=== PATIENT | female | born 1940 | race Caucasian/White ===

== ENCOUNTER 2017-10-22 14:19 | Outpatient (CLI) | payer OTHER ==
[~2017-10-22 14:19] MED LIST: ONDA4TAB9 PO; OXYC-150 PO
[2017-10-22 14:20] VITALS: BP 133/61
== END 2017-10-22 15:46 | disposition home or self-care (01) ==
LOC: ORTHO 14:19
PROVIDERS: ATTEND Nurse Practitioner Family
DX: S52.501A Unspecified fracture of the lower end of right radius, initial encounter for closed fracture (principal); S00.03XA Contusion of scalp, initial encounter; E03.9 Hypothyroidism, unspecified; K85.90 Acute pancreatitis without necrosis or infection, unspecified; M85.80 Other specified disorders of bone density and structure, unspecified site; Z88.5 Allergy status to narcotic agent; Z90.710 Acquired absence of both cervix and uterus; X58.XXXA Exposure to other specified factors, initial encounter; Y93.89 Activity, other specified; Y92.89 Other specified places as the place of occurrence of the external cause; Y99.8 Other external cause status
CPT/HCPCS: 73100; A6449

== ENCOUNTER 2017-10-30 12:32 | Observation (INO) | payer OTHER ==
[2017-10-29 16:53] LABS: BASOPHILS % (AUTO) 0.5 % (0-1); EOSINOPHILS # (AUTO) 0.2 X10'3 (0-0.9); EOSINOPHILS % (AUTO) 2.9 % (0-6); LYMPHOCYTES # (AUTO) 3.5 X10'3 (1.1-4.8); LYMPHOCYTES % (AUTO) 43.9 % (21-51); MEAN CORPUSCULAR HEMOGLOBIN 29.1 PG (27.0-31.0); MEAN CORPUSCULAR HGB CONC 33.2 % (33.0-36.5); MEAN CORPUSCULAR VOLUME 87.7 FL (78-98); MEAN PLATELET VOLUME 6.7 FL (7.4-10.4); MONOCYTES # (AUTO) 0.5 X10'3 (0-0.9); MONOCYTES % (AUTO) 5.9 % (2-12); NEUTROPHILS # (AUTO) 3.8 X10'3 (1.8-7.7); NEUTROPHILS % (AUTO) 46.8 % (42-75); PRE OP HEMATOCRIT 39.5 % (35.0-45.0); PRE OP HEMOGLOBIN 13.1 g/dL (12.0-16.0); PRE OP PLATELET COUNT 399 X10'3 (140-440); RED CELL DISTRIBUTION WIDTH 14.9 % (11.5-14.5)
[2017-10-29 17:08] LABS: ALBUMIN 3.7 G/DL (3.4-5.0); ALBUMIN/GLOBULIN RATIO 1.1 (1.1-1.5); ALKALINE PHOSPHATASE 115 IU/L (46-116); BLOOD UREA NITROGEN 18 MG/DL (7-18); BUN/CREATININE RATIO 22.5 (6.6-38.0); CALCIUM 8.8 MG/DL (8.5-10.1); CHLORIDE 104 MMOL/L (99-107); PRE OP ALT 20 U/L (30-65); PRE OP ANION GAP 7 (8-16); PRE OP AST 14 U/L (10-37); PRE OP BILIRUB, TOTAL 0.3 MG/DL (0.0-1.0); PRE OP GLUCOSE 91 MG/DL (70-104); PRE OP POTASSIUM 3.7 MMOL/L (3.4-5.1); PRE OP SODIUM 141 MMOL/L (135-145); TOTAL CARBON DIOXIDE 29.9 MMOL/L (24-32); TOTAL PROTEIN 7.2 G/DL (6.4-8.2); eGFR 69 ML/MIN
[2017-10-30] VITALS (27 sets, daily range): BP systolic 112–171; BP diastolic 45–89
[~2017-10-30] VITALS: Ht 170.2 cm; Wt 80.7 kg
[~2017-10-30 12:32] MED LIST changes: +ASPI-611 PO; +BIOT5000 PO; +CALC600T12 PO; +CHOL10002 PO; +CYAN-19 PO; +Cefazolin 2GM/100ML NS IVPB IV ONE; +DIGE1TAB PO; +DOCU250C4 PO; +FISH1CAP15 PO; +MAGN125C PO; -ONDA4TAB9 PO; -OXYC-150 PO; +POTA99TA21 PO; +THYR30TA2 PO; +VITE1000C PO; +famotidine 20mg tablet PO ONE; +vancomycin inj 1,500 MG in normal saline 300ml IV soln IV ONE
[2017-10-30] MEDS ORDERED: LIDOcaine 1% (10mg/ml) 2ml vial ONE (12:42)
[2017-10-30] MEDS: ringers solution, lacted 1,000 ML IV SCH (13:40)
[2017-10-30] MEDS ORDERED: ceFAZolin 1000mg inj ONE (14:40)
[2017-10-30] MEDS ORDERED: bacitracin 15gm ointment TP ONE (14:40)
[2017-10-30] MEDS ORDERED: bupivacaine (with preservative) 5 mg/ml inj. 50ml ONE (14:40)
[2017-10-30] MEDS ORDERED: fentaNYL/PF 50MCG/1 ML 2ML syringe ONE ×4 (16:03→17:52)
[2017-10-30] MEDS ORDERED: sevoflurane 250ml liquid IH ONE (16:03)
[2017-10-30] MEDS ORDERED: glycopyrrolate 0.2mg/ml inj ONE (16:52)
[2017-10-30] MEDS ORDERED: propofol inj 20 ML IV ONE (16:52)
[2017-10-30] MEDS ORDERED: LIDOcaine 2% (20mg/ml) 5ml vial ONE (16:52)
[2017-10-30] MEDS ORDERED: acetaminophen 1,000mg/100ml IV 100 ML IV ONE (17:21)
[2017-10-30] MEDS ORDERED: HYDROmorphone 1 mg/ml syringe ONE (17:43)
[2017-10-30] MEDS ORDERED: ondansetron/PF 4mg/2ml inj IV PRN ×2 (17:45→20:20)
[2017-10-30] MEDS ORDERED: HYDROmorphone inj. 0.5 MG/0.5 ML DISP.SYRIN IV PRN ×2 (17:45)
[2017-10-30] MEDS ORDERED: ringers solution, lacted 1,000 ML IV SCH (17:45)
[2017-10-30] MEDS ORDERED: fentaNYL/PF 50MCG/1 ML 2ML syringe IV PRN (17:45)
[2017-10-30] MEDS: fentaNYL/PF 50MCG/1 ML 2ML syringe IV PRN ×2 (17:53→18:06)
[2017-10-30] MEDS ORDERED: cloNIDine hcl/PF 100mcg/ml inj ONE (18:04)
[2017-10-30] MEDS ORDERED: ROPIVAcaine 0.5% (5mg/ml) 30ml vial ONE (18:04)
[2017-10-30] MEDS ORDERED: midazolam 2 mg/2 ml injection ONE (18:08)
[2017-10-30] MEDS ORDERED: MIDAZolam 5mg/ml 2ml vial IV ONE (18:10)
[2017-10-30] MEDS ORDERED: ondansetron 4mg rapidly disintigrating tab PO ONE (19:35)
[2017-10-30] MEDS ORDERED: HYDROcodone/acetaminophen 10/325mg tab PO PRN (20:20)
[2017-10-30] MEDS ORDERED: HYDROcodone/acetaminophen 5mg/325mg tablet PO PRN (20:20)
[2017-10-30] MEDS ORDERED: proCHLORperazine 10 MG/2 ml inj IV PRN (21:00)
[2017-10-30] MEDS: potassium cl 20mEq in 1/2 NS 1,000 ML IV SCH (23:06)
[2017-10-31] VITALS: BP 126/56
[2017-10-31 01:00] VITALS: BP 116/55
[2017-10-31] MEDS: ringers solution, lacted 1,000 ML IV SCH (03:17)
[2017-10-31 06:00] VITALS: BP 122/59
[2017-10-31 06:11] LABS: BASOPHILS % (AUTO) 0.3 % (0-1); EOSINOPHILS # (AUTO) 0.1 X10'3 (0-0.9); EOSINOPHILS % (AUTO) 1.3 % (0-6); HEMATOCRIT 34.9 % (35.0-45.0); HEMOGLOBIN 11.6 g/dl (12.0-16.0); LYMPHOCYTES # (AUTO) 1.8 X10'3 (1.1-4.8); LYMPHOCYTES % (AUTO) 18.9 % (21-51); MEAN CORPUSCULAR HEMOGLOBIN 29.2 PG (27.0-31.0); MEAN CORPUSCULAR HGB CONC 33.3 % (33.0-36.5); MEAN CORPUSCULAR VOLUME 87.8 FL (78-98); MEAN PLATELET VOLUME 6.5 FL (7.4-10.4); MONOCYTES # (AUTO) 0.5 X10'3 (0-0.9); MONOCYTES % (AUTO) 5.2 % (2-12); NEUTROPHILS % (AUTO) 74.3 % (42-75); PLATELET COUNT 328 X10'3 (140-440); RED BLOOD COUNT 3.98 X10'6 (4.20-5.60); RED CELL DISTRIBUTION WIDTH 14.5 % (11.5-14.5); WHITE BLOOD COUNT 9.4 X10'3 (4.5-11.0)
[2017-10-31] MEDS: potassium cl 20mEq in 1/2 NS 1,000 ML IV SCH (06:20)
[2017-10-31 06:22] LABS: ALANINE AMINOTRANSFERASE 18 U/L (12-78); ALBUMIN 2.9 G/DL (3.4-5.0); ALKALINE PHOSPHATASE 99 IU/L (46-116); ANION GAP 5 (8-16); ASPARTATE AMINO TRANSFERASE 11 U/L (10-37); BILIRUBIN,TOTAL 0.3 MG/DL (0.1-1.0); BLOOD UREA NITROGEN 10 MG/DL (7-18); BUN/CREATININE RATIO 12.7 (6.6-38.0); CALCIUM 8.3 MG/DL (8.5-10.1); CHLORIDE 109 MMOL/L (99-107); CREATININE 0.79 MG/DL (0.40-0.90); GLUCOSE 115 MG/DL (70-104); POTASSIUM 4.8 MMOL/L (3.5-5.1); SODIUM 142 MMOL/L (135-145); TOTAL CARBON DIOXIDE 27.6 MMOL/L (24-32); TOTAL PROTEIN 5.9 G/DL (6.4-8.2); eGFR 70 ML/MIN
[2017-10-31] MEDS ORDERED: DIGESTIVE ENZYMES PO SCH (07:30)
[2017-10-31] MEDS ORDERED: docusate sod 250mg capsule PO SCH (08:00)
[2017-10-31] MEDS ORDERED: cyanocobalamin 500mcg tablet PO SCH (08:00)
[2017-10-31] MEDS ORDERED: thyroid, pork 30mg tablet PO SCH (08:00)
[2017-10-31] MEDS ORDERED: BIOTIN 5000MCG PO SCH (08:00)
[2017-10-31] MEDS ORDERED: POTASSIUM GLUCONATE 99 MG PO SCH (08:00)
[2017-10-31] MEDS ORDERED: calcium carbonate 500mg tablet PO SCH (08:00)
[2017-10-31] MEDS ORDERED: FISH OIL 1200 MG PO SCH (08:00)
[2017-10-31] MEDS ORDERED: MAGNESIUM CITRATE 250 MG PO SCH (08:00)
[2017-10-31] MEDS ORDERED: vitamin D (cholecalciferol) 1,000 unit tablet PO SCH (08:00)
== END 2017-10-31 10:12 | disposition home or self-care (01) ==
LOC: PAS 12:32 → ORTHO 4S 20:17
PROVIDERS: ADMIT Orthopaedic Surgery; ATTEND Orthopaedic Surgery
DX: S52.501A Unspecified fracture of the lower end of right radius, initial encounter for closed fracture (principal); R11.0 Nausea; D62 Acute posthemorrhagic anemia; E03.9 Hypothyroidism, unspecified; W19.XXXA Unspecified fall, initial encounter; Y93.89 Activity, other specified; Y92.89 Other specified places as the place of occurrence of the external cause; Y99.8 Other external cause status
CPT/HCPCS: 25607; 36415; 71046; 80053; 85025; 87070; 93005; 96365; 96375; A4565; A6449; C1713; G0378; J0131; J0690; J0735; J0780; J1170; J2001; J2250; J2704; J2795; J3010; J3370; J3490; J7120; A7000

== ENCOUNTER 2017-11-06 13:39 | Outpatient (CLI) | payer OTHER ==
[~2017-11-06 13:39] MED LIST changes: -Cefazolin 2GM/100ML NS IVPB IV ONE; -famotidine 20mg tablet PO ONE; -vancomycin inj 1,500 MG in normal saline 300ml IV soln IV ONE
[2017-11-06 13:59] VITALS: BP 146/76
== END 2017-11-06 14:33 | disposition home or self-care (01) ==
LOC: ORTHO 13:39
PROVIDERS: ATTEND Nurse Practitioner Family
DX: S52.501D Unspecified fracture of the lower end of right radius, subsequent encounter for closed fracture with routine healing (principal); Z56.0 Unemployment, unspecified; Z88.8 Allergy status to other drugs, medicaments and biological substances; X58.XXXD Exposure to other specified factors, subsequent encounter
CPT/HCPCS: 99213; A6449

== ENCOUNTER 2017-11-13 13:19 | Outpatient (CLI) | payer OTHER | END 2017-11-13 14:30 | disposition home or self-care (01) | LOC: ORTHO 13:19 | PROVIDERS: ATTEND Nurse Practitioner Family | DX: S52.501G Unspecified fracture of the lower end of right radius, subsequent encounter for closed fracture with delayed healing (principal); E03.9 Hypothyroidism, unspecified; Z88.8 Allergy status to other drugs, medicaments and biological substances; X58.XXXD Exposure to other specified factors, subsequent encounter | CPT/HCPCS: 73100; A6449 ==

== ENCOUNTER 2017-12-06 13:33 | Outpatient (CLI) | payer OTHER ==
[2017-12-06 14:23] VITALS: BP 125/72
== END 2017-12-06 15:23 | disposition home or self-care (01) ==
LOC: ORTHO 13:33
PROVIDERS: ATTEND Nurse Practitioner Family
DX: S52.501G Unspecified fracture of the lower end of right radius, subsequent encounter for closed fracture with delayed healing (principal); Z88.7 Allergy status to serum and vaccine; X58.XXXD Exposure to other specified factors, subsequent encounter
CPT/HCPCS: 73110; 99213; A4590

== ENCOUNTER 2017-12-27 14:06 | Outpatient (CLI) | payer OTHER ==
[2017-12-27 14:11] VITALS: BP 147/68
== END 2017-12-27 15:02 | disposition home or self-care (01) ==
LOC: ORTHO 14:06
PROVIDERS: ATTEND Nurse Practitioner Family
DX: S52.501D Unspecified fracture of the lower end of right radius, subsequent encounter for closed fracture with routine healing (principal)
CPT/HCPCS: 73110; 99213

== ENCOUNTER 2018-01-10 10:51 | Outpatient (CLI) | payer MEDICARE, OTHER ==
[2018-01-10 10:55] VITALS: BP 131/90
== END 2018-01-10 11:34 | disposition home or self-care (01) ==
LOC: ORTHO 10:51
PROVIDERS: ATTEND Nurse Practitioner Family
DX: S52.591G Other fractures of lower end of right radius, subsequent encounter for closed fracture with delayed healing (principal); S52.611D Displaced fracture of right ulna styloid process, subsequent encounter for closed fracture with routine healing; M79.89 Other specified soft tissue disorders; M19.231 Secondary osteoarthritis, right wrist; M85.88 Other specified disorders of bone density and structure, other site; Z56.0 Unemployment, unspecified; Z88.5 Allergy status to narcotic agent; Z79.82 Long term (current) use of aspirin; Z79.899 Other long term (current) drug therapy; Z88.7 Allergy status to serum and vaccine; X58.XXXD Exposure to other specified factors, subsequent encounter
CPT/HCPCS: 73100; 99213